=== PATIENT | female | born 1945 | race Caucasian/White ===

== ENCOUNTER 2016-08-03 01:18 | Emergency (ER) | payer MEDICAID, OTHER ==
[~2016-08-03] VITALS: Ht 152.4 cm; Wt 55.0 kg
[2016-08-03 01:27] VITALS: Ht 152.4 cm; Wt 55.0 kg
--- NOTE | 2016-08-03 02:37 | ERA ---
ER Documentation Chief Complaint Date/Time DATE: 08/03/16 TIME: 02:36 Chief Complaint Fall HPI The patient is a 71-year-old female, presenting to the ER because she had a mechanical fall around 2 PM yesterday. She complains of vague left-sided head pain, left neck pain, left shoulder, left elbow and left shoulder pain. The pain is over 10, worse with movement. He denies syncope, near syncope, chest pain, dyspnea, abdominal pain, vomiting, dysuria, diarrhea. He does not smoke nor drink Past medical history: Hypertension, diabetes mellitus, CAD Past surgical history:None ROS All systems reviewed and are negative except as per history of present illness. Medications Home Meds Active Scripts Ibuprofen* (Motrin*) 400 Mg Tab, 400 MG PO Q6H Y for PAIN AND OR ELEVATED TEMP, #30 TAB Prov:HANS CHATTERJEE MD 08/03/16 Allergies Allergies: Coded Allergies: No Known Allergy (Unverified , 08/03/16) Physical Exam Vitals Vital Signs Date Time Temp Pulse Resp B/P Pulse Ox O2 Delivery O2 Flow Rate FiO2 08/03/16 01:27 96.0 101 18 222/93 98 Physical Exam Const: No acute distress. Head: Atraumatic. Eyes: Normal Conjunctiva. ENT: Normal External Ears, Nose and Mouth. Neck: Full range of motion. No meningismus. Minimal neck discomfort, no crepitus Resp: Clear to auscultation bilaterally. Cardio: Regular rate and rhythm, no murmurs. Abd: Soft, non distended, normal bowel sounds, non tender. Skin: No petechiae or rashes. Back: No midline or flank tenderness. Ext: No cyanosis, or edema. Left proximal forearm with small ecchymosis, no laceration, limited range of motion of the elbow because of tenderness, no laceration. Left shoulder is with minimal vague discomfort, no laceration Neur: Awake and alert. No focal deficit Psych: Normal Mood and Affect. Result Diagram: 08/03/16 0355 08/03/16 0355 Results 24 hrs Laboratory Tests Test 08/03/16 03:55 White Blood Count 8.510^3/ul Red Blood Count 4.4210^6/ul Hemoglobin 12.1g/dl Hematocrit 38.2% Mean Corpuscular Volume 86.4fl Mean Corpuscular Hemoglobin 27.4pg Mean Corpuscular Hemoglobin Concent 31.7g/dl Red Cell Distribution Width 14.7% Platelet Count 04259^3/UL Mean Platelet Volume 9.8fl Neutrophils % 51.5% Lymphocytes % 34.7% Monocytes % 11.1% Eosinophils % 2.0% Basophils % 0.5% Nucleated Red Blood Cells % 0.0/100WBC Neutrophils # 4.410^3/ul Lymphocytes # 3.010^3/ul Monocytes # 0.910^3/ul Eosinophils # 0.210^3/ul Basophils # 0.010^3/ul Nucleated Red Blood Cells # 0.010^3/ul Prothrombin Time 13.1Sec Prothrombin Time Ratio 1.0 INR International Normalized Ratio 0.99 Activated Partial Thromboplast Time 36.7Sec Sodium Level 141mmol/L Potassium Level 4.0mmol/L Chloride Level 97mmol/L Carbon Dioxide Level 25mmol/L Anion Gap 23 Blood Urea Nitrogen 22mg/dl Creatinine 0.83mg/dl Glucose Level 160mg/dl Calcium Level 10.0mg/dl [facility]/[place] [id number] Radiology Main Line: [phone] DIAGNOSTIC IMAGING REPORT Patient: SHAHRAM XIONG : 1945 Age: 71 Sex: F MR #: [id number] DOS: 08/03/16 0242 Ordering MD: HANS CHATTERJEE MD Location: E/R Room/Bed: PROCEDURE: XR shoulder. CLINICAL INDICATION: Trauma. TECHNIQUE: Three views of the left shoulder were obtained. COMPARISON: There are no similar studies submitted for comparison. FINDINGS: There is no acute fracture or dislocation.No destructive osseous lesion is identified.The acromioclavicular joint is intact. The visualized portions of the chest are within normal limits. IMPRESSION: No acute fracture or dislocation. RPTAT: HIKT .Linag Li MD, Date Time Electronically viewed and signed by .Liang Li MD, on 08/03/2016 04:13 .T/ CC: HANS CHATTERJEE MD [place] [address] Radiology Main Line: [phone] DIAGNOSTIC IMAGING REPORT Patient: SHAHRAM XIONG : 1945 Age: 71 Sex: F MR #: [id number] DOS: 08/03/16 024 Ordering MD: HANS CHATTERJEE MD Location: E/R Room/Bed: PROCEDURE: XR Elbow. CLINICAL INDICATION: Trauma. TECHNIQUE: AP, lateral and oblique views of the left elbow were performed. COMPARISON: There are no similar studies submitted for comparison. FINDINGS: There is normal bone mineralization.There is no acute fracture or dislocation.No osseous lesion is identified. There is no joint effusion. IMPRESSION: No acute fracture or dislocation. RPTAT: HIKT .Liang Li MD, MD Date Time Electronically viewed and signed by .Liang Li MD, MD on 08/03/2016 04:13 .T/ CC: HANS CHATTERJEE MD [place] [address] Radiology Main Line: [phone] DIAGNOSTIC IMAGING REPORT Patient: SHAHRAM XIONG : 1945 Age: 71 Sex: F MR #: [id number] DOS: 08/03/16 024 Ordering MD: HANS CHATTERJEE MD Location: E/R Room/Bed: PROCEDURE: CT Cervical Spine without contrast. CLINICAL INDICATION: Trauma TECHNIQUE: Noncontrast CT of the cervical spine was performed with axial images. Coronal and sagittal images were also performed. The administered radiation dose was CTDI vol = 22.3 mGy, DLP = 565 mGy-cm. COMPARISON: There are no similar studies submitted for comparison. FINDINGS: Vertebral body stature and alignment are maintained. No acute fracture or subluxation is identified. The paravertebral and paraspinous soft tissues are unremarkable. Extensive atherosclerotic calcifications are noted within the common carotid arteries and carotid bulbs with likely marked narrowing on the right. IMPRESSION: No acute fracture or subluxation. RPTAT: HIKT .Liang Li MD, MD Date Time Electronically viewed and signed by .Liang Li MD, MD on 08/03/2016 04:06 .T/ CC: HANS CHATTERJEE MD [place] [address] Radiology Main Line: [phone] DIAGNOSTIC IMAGING REPORT Patient: SHAHRAM XIONG : 1945 Age: 71 Sex: F MR #: [id number] DOS: 08/03/16 0242 Ordering MD: HANS CHATTERJEE MD Location: E/R Room/Bed: PROCEDURE: CT BRAIN WITHOUT CONTRAST CLINICAL INDICATION: 71-year-old female with headaches. TECHNIQUE: The study was performed utilizing [employer] VCT 64-slice CT scanner. Direct axial sections were obtained from the foramen magnum to the vertex without the use of intravenous contrast material. Sagittal and coronal reformations were obtained. Sagittal and coronal reformations were obtained. One or more the following dose reduction techniques were utilized: automated exposure control, adjustment of the mA and/or kV according to patient's size or use of iterative reconstruction technique. The images were viewed on a PACS workstation. CTD/vol = 45.0 mGy; Total Exam DLP = 720.2 mGy-cm. COMPARISON: None. FINDINGS: There is ihzk-dc-fghrulgc degree of diffuse cortical and central atrophy with compensatory ventricular enlargement. There is no evidence for mass effect or midline shift. There are periventricular and deep white matter areas of decreased density consistent with microangiopathic ischemic changes. There is a small focal area of encephalomalacia within the opercular region presumably representing a prior infarct. There is no evidence for acute intra or extra- axial blood. Calcifications are seen within the intracranial carotid arteries bilaterally. The bony calvarium is intact. There is hyperostosis frontalis interna. There is biparietal thinning. There is mild mucosal thickening within the partially visualized left maxillary sinus. No air-fluid levels are noted. The mastoid air cells are without significant soft tissue. IMPRESSION: 1. Auet-it-xwwkgszm diffuse atrophy. 2. Microangiopathic ischemic changes. 3. 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 4. Vascular calcifications. 5. Hyperostosis frontalis interna with biparietal thinning. 6. Mild mucosal thickening partially visualized left maxillary sinus. .Daniel Santos MD, Date Time Electronically viewed and signed by .Daniel Santos MD, MD on 08/03/2016 03:33 .M/ CC: HANS CHATTERJEE MD EKG: Read by emergency physician Rate/Rhythm: Normal Sinus Rhythm 97 beats/min QRS, ST, T-waves: No ST elevation, no T inversion, nonspecific ST abnormality Impression: Abnormal EKG MEDICAL MAKING DECISION: The patient is a 71-year-old female, presenting with acute left shoulder pain, acute left elbow pain, acute accelerated hypertension. She was treated with labetalol 20 mg IV for acute accelerated hypertension, morphine 2 mg IV for pain, Zofran 4 mg IV for nausea with good response. The differential diagnoses considered include but are not limited to central causes such as cerebellar infarct, cerebellar hemorrhage, cerebellar tumor, acoustic neuroma, peripheral causes such as benign positional vertigo, labyrinthitis, medication, Meniere's disease. Departure Diagnosis: Primary Impression: Elbow contusion Additional Impressions: Shoulder pain, left Accelerated hypertension Condition: Good Comments He was discharged with Motrin I discussed the findings with the patient. I advised the patient to follow-up with the primary physician in about 1-2 days, sooner if needed and return if any concern. HANS CHATTERJEE MD Aug 03, 2016 02:37
--- NOTE | 2016-08-03 03:33 | RADRPT ---
PROCEDURE: CT BRAIN WITHOUT CONTRAST CLINICAL INDICATION: 71-year-old female with headaches. TECHNIQUE: The study was performed utilizing [employer] VCT 64-slice CT scanner. Direct axial sections were obtained from the foramen magnum to the vertex without the use of intravenous contrast material. Sagittal and coronal reformations were obtained. Sagittal and coronal reformations were obtained. One or more the following dose reduction techniques were utilized: automated exposure cont rol, adjustment of the mA and/or kV according to patient's size or use of iterative reconstruction t echnique. The images were viewed on a PACS workstation. CTD/vol = 45.0 mGy; Total Exam DLP = 720.2 mGy-cm. COMPARISON: None. FINDINGS: There is xakb-yx-qgamcemz degree of diffuse cortical and central atrophy with compensatory ventricul ar enlargement. There is no evidence for mass effect or midline shift. There are periventricular a nd deep white matter areas of decreased density consistent with microangiopathic ischemic changes. T here is a small focal area of encephalomalacia within the opercular region presumably representing a prior infarct. There is no evidence for acute intra or extra-axial blood. Calcifications are seen w ithin the intracranial carotid arteries bilaterally. The bony calvarium is intact. There is hyperost osis frontalis interna. There is biparietal thinning. There is mild mucosal thickening within the partially visualized left maxillary sinus. No air-fluid levels are noted. The mastoid air cells ar e without significant soft tissue. IMPRESSION: 1. Bsju-om-ridejton diffuse atrophy. 2. Microangiopathic ischemic changes. 3. 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 4. Vascular calcifications. 5. Hyperostosis frontalis interna with biparietal thinning. 6. Mild mucosal thickening partially visualized left maxillary sinus. .Daniel Santos MD, MD Date Time Electronically viewed and signed by .Daniel Santos MD, MD on 08/03/2016 03:33 .Kimmie/
--- NOTE | 2016-08-03 04:06 | RADRPT ---
PROCEDURE: CT Cervical Spine without contrast. CLINICAL INDICATION: Trauma TECHNIQUE: Noncontrast CT of the cervical spine was performed with axial images. Coronal and sagitta l images were also performed. The administered radiation dose was CTDI vol = 22.3 mGy, DLP = 565 mG y-cm. COMPARISON: There are no similar studies submitted for comparison. FINDINGS: Vertebral body stature and alignment are maintained. No acute fracture or subluxation is identified. The paravertebral and paraspinous soft tissues are unremarkable. Extensive atherosclerotic calcifications are noted within the common carotid arteries and carotid bu lbs with likely marked narrowing on the right. IMPRESSION: No acute fracture or subluxation. RPTAT: HIKT .Liang Li MD, MD Date Time Electronically viewed and signed by .Liang Li MD, on 08/03/2016 04:06 .T/
--- NOTE | 2016-08-03 04:13 | RADRPT ---
PROCEDURE: XR shoulder. CLINICAL INDICATION: Trauma. TECHNIQUE: Three views of the left shoulder were obtained. COMPARISON: There are no similar studies submitted for comparison. FINDINGS: There is no acute fracture or dislocation.No destructive osseous lesion is identified.The acromiocla vicular joint is intact. The visualized portions of the chest are within normal limits. IMPRESSION: No acute fracture or dislocation. RPTAT: HIKT .Liang Li MD, MD Date Time Electronically viewed and signed by .Liang Li MD, on 08/03/2016 04:13 .T/
--- NOTE | 2016-08-03 04:13 | RADRPT ---
PROCEDURE: XR Elbow. CLINICAL INDICATION: Trauma. TECHNIQUE: AP, lateral and oblique views of the left elbow were performed. COMPARISON: There are no similar studies submitted for comparison. FINDINGS: There is normal bone mineralization.There is no acute fracture or dislocation.No osseous lesion is i dentified. There is no joint effusion. IMPRESSION: No acute fracture or dislocation. RPTAT: HIKT .Liang Li MD, MD Date Time Electronically viewed and signed by .Liang Li MD, on 08/03/2016 04:13 .T/
[2016-08-03 04:18] LABS: ADD SCAN DIFF NO
[2016-08-03 04:29] LABS: BASOPHILS % 0.5 % (0.0-2.0); EOSINOPHILS # 0.2 10^3/ul (0.0-0.5); HEMATOCRIT 38.2 % (37.0-47.0); HEMOGLOBIN 12.1 g/dl (12.0-16.0); LYMPHOCYTES % 34.7 % (15.0-51.0); MEAN CORPUSCULAR HEMOGLOBIN 27.4 pg (29.0-33.0); MEAN CORPUSCULAR HGB CONC 31.7 g/dl (32.0-37.0); MEAN CORPUSCULAR VOLUME 86.4 fl (82.0-101.0); MEAN PLATELET VOLUME 9.8 fl (7.4-10.4); MONOCYTE # 0.9 10^3/ul (0.3-0.9); MONOCYTES % 11.1 % (0.0-11.0); NEUTROPHIL # 4.4 10^3/ul (1.6-7.5); NEUTROPHILS % 51.5 % (39.0-77.0); PLATELET COUNT 258 10^3/UL (140-415); RED BLOOD COUNT 4.42 10^6/ul (4.20-5.40); RED CELL DISTRIBUTION WIDTH 14.7 % (11.5-14.5); WHITE BLOOD COUNT 8.5 10^3/ul (4.8-10.8)
[2016-08-03 04:37] LABS: INR 0.99; PROTIME 13.1 Sec (12.2-14.2)
[2016-08-03 04:38] LABS: PARTIAL THROMBOPLASTIN TIME 36.7 Sec (25.0-35.0)
[2016-08-03 04:50] LABS: CREATININE 0.83 mg/dl (0.44-1.00)
[2016-08-03] MEDS ORDERED: IBUP400T22 PO (05:20)
[2016-08-03] MEDS ORDERED: ONDANSETRON 4 MG INJ IV STA (05:30)
[2016-08-03] MEDS ORDERED: morphine 2 MG INJ IV ONE (05:30)
[2016-08-03] MEDS ORDERED: LABETALOL HCL 20MG INJ IV ONE (05:30)
[2016-08-03 06:16] VITALS: BP 156/51; PULSE 64; RESP 18; TEMP 98.2
== END 2016-08-03 06:18 | disposition home or self-care (01) ==
LOC: E/R 01:18
DX: S50.02XA Contusion of left elbow, initial encounter (principal); S49.92XA Unspecified injury of left shoulder and upper arm, initial encounter; I10 Essential (primary) hypertension; E11.9 Type 2 diabetes mellitus without complications; I25.10 Atherosclerotic heart disease of native coronary artery without angina pectoris; W19.XXXA Unspecified fall, initial encounter; Y92.9 Unspecified place or not applicable
CPT/HCPCS: 36415; 70450; 72125; 73030; 73080; 80048; 85025; 85610; 85730; 93005; 96374; 96375; J2270; J2405; Z7502; Z7610

== ENCOUNTER 2016-12-28 18:05 | Inpatient (IN) | payer MEDICAID, OTHER ==
[~2016-12-28] VITALS: Ht 152.4 cm; Wt 51.9 kg
[~2016-12-28 18:05] MED LIST: IBUP400T22 PO
[2016-12-28 18:07] VITALS: Ht 152.4 cm; Wt 51.9 kg
[2016-12-28] MEDS ORDERED: SOD CHLORIDE 0.9% 1,000 ML IV STA (18:55)
[2016-12-28] MEDS ORDERED: ONDANSETRON 4 MG INJ IV STA (18:55)
--- NOTE | 2016-12-28 19:16 | ERD ---
ER Documentation Chief Complaint Date/Time DATE: 12/28/16 TIME: 19:14 Chief Complaint BIB family members with complaint of weakness HPI 71-year-old female is brought in by her family for having weakness for the last few days. She does feel generally tired and occasionally lightheaded. No chest pain or shortness of breath fevers or chills. Decreased activity. ROS All systems reviewed and are negative except as per history of present illness. Medications Home Meds Reported Medications Nortriptyline Hcl* (Nortriptyline Hcl*) 25 Mg Capsule, 25 MG PO BID, CAP 12/28/16 Aspirin (Aspir-Low) 81 Mg Tablet.dr, 81 MG PO DAILY 12/28/16 Metoprolol Tartrate* (Lopressor*) 25 Mg Tab, 25 MG PO BID, #60 TAB 12/28/16 Atorvastatin* (Atorvastatin*) 40 Mg Tablet, 40 MG PO DAILY, #30 TAB 12/28/16 Glipizide* (Glipizide*) 5 Mg Tablet, 5 MG PO AC BREAKFAST, TAB 12/28/16 Metformin Hcl* (Metformin Hcl*) 850 Mg Tablet, 850 MG PO WITH MEALS, #60 TAB TID 12/28/16 Furosemide* (Furosemide*) 40 Mg Tablet, 40 MG PO DAILY, TAB 12/28/16 Ferrous Sulfate* (Ferrous Sulfate*) 325 Mg Tabec, 325 MG PO BID, TAB 12/28/16 Discontinued Scripts Ibuprofen* (Motrin*) 400 Mg Tab, 400 MG PO Q6H Y for PAIN AND OR ELEVATED TEMP, #30 TAB Prov:HANS CHATTERJEE MD 08/03/16 Allergies Allergies: Coded Allergies: No Known Allergy (Unverified , 12/28/16) PMhx/Soc History of Surgery: No Anesthesia Reaction: No Hx Neurological Disorder: No Hx Respiratory Disorders: No Hx Cardiac Disorders: Yes (HTN) Hx Psychiatric Problems: No Hx Miscellaneous Medical Probl: Yes (HTN) Hx Alcohol Use: No Hx Substance Use: No Hx Tobacco Use: No Physical Exam Vitals Vital Signs Date Time Temp Pulse Resp B/P Pulse Ox O2 Delivery O2 Flow Rate FiO2 12/28/16 22:23 87 18 127/54 97 Room Air 12/28/16 18:07 98.6 99 20 89/40 94 Physical Exam Const: [] Head: Atraumatic Eyes: Normal Conjunctiva ENT: Normal External Ears, Nose and Mouth. Neck: Full range of motion..~ No meningismus. Resp: Clear to auscultation bilaterally Cardio: Regular rate and rhythm, no murmurs Abd: Soft, non tender, non distended. Normal bowel sounds Skin: No petechiae or rashes Back: No midline or flank tenderness Ext: No cyanosis, or edema Neur: Awake and alert Psych: Normal Mood and Affect Result Diagram: 12/28/16191712/28/161917 Results 24 hrs Laboratory Tests Test 12/28/16 19:18 12/28/16 20:42 White Blood Count 9.010^3/ul Red Blood Count 4.0310^6/ul Hemoglobin 11.3g/dl Hematocrit 33.5% Mean Corpuscular Volume 83.1fl Mean Corpuscular Hemoglobin 28.0pg Mean Corpuscular Hemoglobin Concent 33.7g/dl Red Cell Distribution Width 15.9% Platelet Count 62072^3/UL Mean Platelet Volume 9.4fl Neutrophils % 68.4% Lymphocytes % 19.7% Monocytes % 10.9% Eosinophils % 0.3% Basophils % 0.3% Nucleated Red Blood Cells % 0.0/100WBC Neutrophils # (Manual) 6.210^3/ul Lymphocytes # 1.810^3/ul Monocytes # 1.010^3/ul Eosinophils # 0.010^3/ul Basophils # 0.010^3/ul Nucleated Red Blood Cells # 0.010^3/ul Sodium Level 136mmol/L Potassium Level 3.3mmol/L Chloride Level 88mmol/L Carbon Dioxide Level 29mmol/L Anion Gap 22 Blood Urea Nitrogen 23mg/dl Creatinine 1.72mg/dl Glucose Level 259mg/dl Lactic Acid Level 2.4mmol/L Calcium Level 8.1mg/dl Total Bilirubin 0.2mg/dl Direct Bilirubin 0.00mg/dl Indirect Bilirubin 0.2mg/dl Aspartate Amino Transf (AST/SGOT) 36IU/L Alanine Aminotransferase (ALT/SGPT) 41IU/L Alkaline Phosphatase 99IU/L Troponin I 0.057ng/ml Total Protein 7.3g/dl Albumin 4.0g/dl Globulin 3.30g/dl Albumin/Globulin Ratio 1.21 Lipase 187U/L Urine Color YELLOW Urine Clarity SLIGHTLY CLOUDY Urine pH 7.0 Urine Specific [place] 1.011 Urine Ketones NEGATIVEmg/dL Urine Nitrite NEGATIVEmg/dL Urine Bilirubin NEGATIVEmg/dL Urine Urobilinogen NEGATIVEmg/dL Urine Leukocyte Esterase 1+Darinel/ul Urine Microscopic RBC 0/HPF Urine Microscopic WBC 31/HPF Urine Bacteria MANY/HPF Urine Hemoglobin NEGATIVEmg/dL Urine Glucose 2+mg/dL Urine Total Protein 2+mg/dl Current Medications Medications (Trade) Dose Ordered Sig/Cherry Route PRN Reason Start Time Stop Time Status Last Admin Dose Admin Sodium Chloride (NS) 1,000 ml @ 1,000 mls/hr Q1H STAT IV 12/28/16 18:55 12/28/16 19:54 DC 12/28/16 19:27 Ondansetron HCl (Zofran Inj) 4 mg ONCE STAT IV 12/28/16 18:55 12/28/16 18:58 DC 12/28/16 19:27 Procedures/MDM 71-year-old female with recent debility secondary to urinary tract infection, also has diabetic hyperglycemia and dehydration with lactic acidosis. She was hydrated with 2 L of normal saline and treated with cefepime. Urine culture is pending. She is feeling a little better but still does not want to eat. Spoke with on day who will be admitting. Condition is currently stabilized after initial hypotension. EKG interpretation: Normal sinus rhythm rate of 91, normal axis, no ST or T- wave changes concerning for acute ischemia, normal intervals. 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
--- NOTE | 2016-12-28 19:27 | RADRPT ---
PROCEDURE: XR Chest. CLINICAL INDICATION: Abdominal pain and weakness. TECHNIQUE: Single frontal view. COMPARISON: None. FINDINGS: The lungs are clear. The heart size is normal. There is calcification in the aorta consistent with atherosclerosis. There is no pleural effusion. There is no pneumothorax. IMPRESSION: 1. Atherosclerosis. 2. Clear lungs. RPTAT: QQ .Nick Felix MD, MD Date Time Electronically viewed and signed by .Nick Felix MD, MD on 12/28/2016 19:27 .R/
[2016-12-28 19:29] LABS: BASOPHILS % 0.3 % (0.0-2.0); EOSINOPHILS % 0.3 % (0.0-7.0); HEMATOCRIT 33.5 % (37.0-47.0); HEMOGLOBIN 11.3 g/dl (12.0-16.0); LYMPHOCYTES # 1.8 10^3/ul (0.8-2.9); LYMPHOCYTES % 19.7 % (15.0-51.0); MEAN CORPUSCULAR HGB CONC 33.7 g/dl (32.0-37.0); MEAN CORPUSCULAR VOLUME 83.1 fl (82.0-101.0); MEAN PLATELET VOLUME 9.4 fl (7.4-10.4); MONOCYTES % 10.9 % (0.0-11.0); NEUTROPHILS % 68.4 % (39.0-77.0); PLATELET COUNT 303 10^3/UL (140-415); RED BLOOD COUNT 4.03 10^6/ul (4.20-5.40); RED CELL DISTRIBUTION WIDTH 15.9 % (11.5-14.5)
[2016-12-28 19:45] LABS: ALBUMIN/GLOBULIN RATIO 1.21; BILIRUBIN,INDIRECT 0.2 mg/dl (0-1.1); BILIRUBIN,TOTAL 0.2 mg/dl (0.2-1.3); CALCIUM 8.1 mg/dl (8.4-10.2); CREATININE 1.72 mg/dl (0.44-1.00); POTASSIUM 3.3 mmol/L (3.5-5.1); TOTAL PROTEIN 7.3 g/dl (6.1-8.1)
[2016-12-28 19:54] LABS: TROPONIN-I 0.057 ng/ml (0.00-0.12)
[2016-12-28 21:20] LABS: ADD UMIC YES; UR ASCORBIC ACID NEGATIVE (NEGATIVE); UR BACTERIA MANY /HPF (NONE SEEN); UR BILIRUBIN (Dip) NEGATIVE (NEGATIVE); UR BLOOD (Dip) NEGATIVE (NEGATIVE); UR CLARITY SLIGHTLY CLOUDY (CLEAR); UR COLOR YELLOW (YELLOW); UR GLUCOSE (Dip) 2+ mg/dL (NEGATIVE); UR KETONES (Dip) NEGATIVE (NEGATIVE); UR LEUKOCYTE ESTERASE (Dip) 1+ Leu/ul (NEGATIVE); UR NITRITE (Dip) NEGATIVE (NEGATIVE); UR RBC 0 /HPF (0-5); UR SPECIFIC GRAVITY (Dip) 1.011 (1.003-1.030); UR TOTAL PROTEIN (Dip) 2+ mg/dl (NEGATIVE); UR UROBILINOGEN (Dip) NEGATIVE (NEGATIVE); UR WBC CLUMPS FEW /HPF (NONE SEEN)
[2016-12-28] MEDS ORDERED: FER325 PO (22:42)
[2016-12-28] MEDS ORDERED: FURO40TA4 PO (22:43)
[2016-12-28] MEDS ORDERED: METF850T PO (22:44)
[2016-12-28] MEDS ORDERED: GLIP5TAB13 PO (22:44)
[2016-12-28] MEDS ORDERED: METO-448 PO (22:45)
[2016-12-28] MEDS ORDERED: ATOR40TA68 PO (22:45)
[2016-12-28] MEDS ORDERED: ASPI81TA50 PO (22:46)
[2016-12-28] MEDS ORDERED: NORT25CA PO (22:48)
[2016-12-28] MEDS ORDERED: ONDANSETRON 4 MG INJ IV PRN (23:00)
[2016-12-28] MEDS ORDERED: ACETAMINOPHEN 325 MG TAB PO PRN (23:00)
[2016-12-29] VITALS (13 sets, daily range): BP systolic 92–163; BP diastolic 45–65; PULSE 62–94; RESP 16–18; TEMP 98.6
[2016-12-29] MEDS ORDERED: SOD CHLORIDE 0.9% 1,000 ML IV SCH (03:37)
[2016-12-29] MEDS ORDERED: ONDANSETRON 4 MG INJ IV PRN (04:00)
[2016-12-29] MEDS ORDERED: NACL 0.9% 3 ML SYG IV SCH (04:00)
[2016-12-29] MEDS ORDERED: morphine 2 MG INJ IV PRN (04:00)
[2016-12-29] MEDS ORDERED: ACETAMINOPHEN 325 MG TAB PO PRN (04:00)
[2016-12-29] MEDS ORDERED: ALBUTEROL/IPRATROPIUM (NEB) 3 ML AMP HHN PRN (04:00)
[2016-12-29] MEDS: CEFTRIAXONE 1 GM/50 ML (PMX) 50 ML IVPB SCH (05:25)
[2016-12-29] MEDS: FUROSEMIDE 40 MG TAB PO SCH (05:26)
[2016-12-29 06:09] LABS: BASOPHILS % 0.4 % (0.0-2.0); EOSINOPHILS # 0.1 10^3/ul (0.0-0.5); EOSINOPHILS % 1.2 % (0.0-7.0); HEMATOCRIT 31.5 % (37.0-47.0); HEMOGLOBIN 10.4 g/dl (12.0-16.0); LYMPHOCYTES % 28.8 % (15.0-51.0); MEAN CORPUSCULAR HEMOGLOBIN 27.7 pg (29.0-33.0); MEAN CORPUSCULAR VOLUME 83.8 fl (82.0-101.0); MEAN PLATELET VOLUME 9.5 fl (7.4-10.4); MONOCYTE # 0.9 10^3/ul (0.3-0.9); MONOCYTES % 12.7 % (0.0-11.0); NEUTROPHILS % 56.8 % (39.0-77.0); PLATELET COUNT 269 10^3/UL (140-415); RED BLOOD COUNT 3.76 10^6/ul (4.20-5.40); RED CELL DISTRIBUTION WIDTH 15.9 % (11.5-14.5); WHITE BLOOD COUNT 6.8 10^3/ul (4.8-10.8)
--- NOTE | 2016-12-29 06:12 | HP ---
Date/Time of Note Date/Time of Note DATE: 12/29/16 TIME: 06:03 Assessment/Plan VTE Prophylaxis VTE Prophylaxis Intervention: SCD's Lines/Catheters IV [facility] ([facility] Saline Lock Urinary Cath still in place: No Assessment/Plan Assessment/Plan 1. Urinary tract infection -Antibiotic and IV fluid -Follow-up culture results 2. Generalized weakness: Secondary to decreased p.o. intake and UTI -Treat UTI -Consider appetite stimulant as needed -Physical therapy evaluation 3. Acute kidney injury: from volume depletion as a result of decreased p.o. intake -IV fluid -Renal ultrasound and nephrology consult as needed 4. Type 2 diabetes -Insulin while in-house -Check A1c 5. History of hypertension: Patient actually presented with hypotension -We will hold antihypertensives for now and will resume as needed 6. History of CAD -Continue home meds including beta-carolyn, aspirin and statin 7. Iron deficiency anemia -Continue ferrous sulfate HPI/ROS Admit Date/Time Admit Date/Time Dec 28, 2016 at 22:59 Hx of Present Illness This is a 71-year-old female with a history of hypertension, diabetes, dyslipidemia, CAD who was brought to the ER for generalized weakness and decreased p.o. intake. For for about a week or so, daughter noted decreased p.o. intake and progressively worsening weakness. No focal weakness or strokelike symptoms. When presented to the ER, she was hypotensive with a blood pressure of 89 over with a heart rate of. Labs shows: hemoglobin 11.3 lactic acid 2.4 creatinine 1.72 and glucose of 59 otherwise CBC and CMP within acceptable range. Urinalysis is consistent with UTI. PMH/Family/Social Past Medical History Medical History: diabetes, hypertension, other (Anemia) Social History Alcohol Use: none Smoking Status: Never smoker Drug Use: none Exam/Review of Systems Vital Signs Vitals Vital Signs Date Time Temp Pulse Resp B/P Pulse Ox O2 Delivery O2 Flow Rate FiO2 12/29/16 05:26 77 16 135/61 99 Room Air 12/29/16 00:44 98.6 Exam Constitutional: alert, oriented, well developed Head: atraumatic, normocephalic Eyes: EOMI, PERRL Respiratory: clear to auscultation, normal air movement Cardiovascular: nl pulses, regular rate and rhythm Gastrointestinal: non-tender, soft Extremities: normal pulses Labs Result Diagram: 12/28/16191712/28/161917 Medications Medications Current Medications Sodium Chloride (NS) 1,000 ml @ 75 mls/hr [id number] IV Last administered on 05:26; Admin Dose 75 MLS/HR; Start 12/29/16 at 03:37; Stop 12/29/16 at 12:00 Ondansetron HCl (Zofran Inj) 4 mg Q6H PRN IV NAUSEA AND/OR VOMITING; Start 12/29 at 04:00 Acetaminophen (Tylenol Tab) 650 mg Q6H PRN PO PAIN LEVEL 1-3 OR FEVER; Start at 04:00 Morphine Sulfate (morphine) 2 mg Q4H PRN IV PAIN LEVEL 7-10; Start 12/29/16 at 04:00 Heparin Sodium (Porcine) (Heparin (5000 Units/0.5 ml)) 5,000 unit Q12 SC ; Start 12/29/16 at 09:00 Aspirin (Halfprin) 81 mg DAILY PO ; Start 12/29/16 at 09:00 Atorvastatin Calcium (Lipitor) 40 mg DAILY@21 PO ; Start 12/29/16 at 21:00 Ferrous Sulfate (Ferrous Sulfate (Ec)) 325 mg BID PO ; Start 12/29/16 at 09:00 Furosemide (Lasix) 40 mg DAILY@06 PO Last administered on 12/29/16 05:26; Admin Dose 40 MG; Start 12/29/16 at 06:00 Metoprolol Tartrate (Lopressor) 25 mg BID PO ; Start 12/29/16 at 09:00 Nortriptyline HCl 25 mg 25 mg BID PO ; Start 12/29/16 at 09:00 Ceftriaxone Sodium (Rocephin) 50 ml @ 100 mls/hr Q24H IVPB Last administered on 12/29/16 05:25; Admin Dose 100 MLS/HR; Start 12/29/16 at 04:00 AMARIS HUGHES MD Dec 29, 2016 06:12
[2016-12-29 06:59] LABS: ALBUMIN 3.5 g/dl (3.3-4.9); ALBUMIN/GLOBULIN RATIO 1.2; BILIRUBIN,INDIRECT 0.1 mg/dl (0-1.1); BILIRUBIN,TOTAL 0.1 mg/dl (0.2-1.3); CALCIUM 7.2 mg/dl (8.4-10.2); CREATININE 1.5 mg/dl (0.44-1.00); POTASSIUM 3.2 mmol/L (3.5-5.1); TOTAL PROTEIN 6.4 g/dl (6.1-8.1)
[2016-12-29] MEDS: ASPIRIN (EC) 81 MG TAB PO SCH (08:42)
[2016-12-29] MEDS: METOPROLOL 25 MG TAB PO SCH ×2 (08:43→21:00)
[2016-12-29] MEDS: NORTRIPTYLINE 25 MG CAP PO SCH ×2 (08:43→22:33)
[2016-12-29] MEDS: FERROUS SULFATE (EC) 325 MG TAB PO SCH ×2 (08:43→20:36)
[2016-12-29] MEDS: HEPARIN 5,000 UNIT/0.5 ML VIAL SC SCH ×2 (08:46→20:38)
[2016-12-29] MEDS ORDERED: POTASSIUM CHLORIDE (SR) 20 MEQ TAB PO STA (09:52)
[2016-12-29] MEDS ORDERED: GLUCAGON 1 MG INJ IM PRN (10:30)
[2016-12-29] MEDS ORDERED: GLUCOSE GEL 15 GRAM TUBE BUCCAL PRN (10:30)
[2016-12-29] MEDS ORDERED: GLUCOSE GEL 15 GRAM TUBE PO PRN ×2 (10:30)
[2016-12-29] MEDS ORDERED: DEXTROSE 50% 50 ML SYRINGE IV PRN ×2 (10:30)
[2016-12-29] MEDS: INSULIN ASPART [NOVOLOG] 3 ML PEN SC SCH ×3 (13:34→20:37)
[2016-12-29] MEDS: SOD CHLORIDE 0.9% 1,000 ML IV SCH (17:33)
[2016-12-29] MEDS ORDERED: ATORVASTATIN 40 MG TAB PO SCH (21:00)
[2016-12-30] VITALS (9 sets, daily range): BP systolic 110–184; BP diastolic 52–73; PULSE 60–89; RESP 18
[2016-12-30] MEDS ORDERED: ACCU-CHEK XX SCH ×2 (02:00)
[2016-12-30] MEDS: SOD CHLORIDE 0.9% 1,000 ML IV SCH (06:19)
[2016-12-30] MEDS: CEFTRIAXONE 1 GM/50 ML (PMX) 50 ML IVPB SCH (06:19)
[2016-12-30] MEDS: FUROSEMIDE 40 MG TAB PO SCH (06:25)
[2016-12-30 07:47] LABS: BASOPHILS % 0.5 % (0.0-2.0); EOSINOPHILS # 0.1 10^3/ul (0.0-0.5); EOSINOPHILS % 1.4 % (0.0-7.0); HEMATOCRIT 33.7 % (37.0-47.0); HEMOGLOBIN 10.8 g/dl (12.0-16.0); LYMPHOCYTES # 2.1 10^3/ul (0.8-2.9); LYMPHOCYTES % 35.7 % (15.0-51.0); MEAN CORPUSCULAR HEMOGLOBIN 27.6 pg (29.0-33.0); MEAN CORPUSCULAR VOLUME 86.2 fl (82.0-101.0); MEAN PLATELET VOLUME 9.5 fl (7.4-10.4); MONOCYTE # 0.6 10^3/ul (0.3-0.9); MONOCYTES % 10.9 % (0.0-11.0); NEUTROPHILS % 51.2 % (39.0-77.0); PLATELET COUNT 245 10^3/UL (140-415); RED BLOOD COUNT 3.91 10^6/ul (4.20-5.40); RED CELL DISTRIBUTION WIDTH 16.2 % (11.5-14.5); WHITE BLOOD COUNT 5.8 10^3/ul (4.8-10.8)
[2016-12-30 08:17] LABS: CALCIUM 7.5 mg/dl (8.4-10.2); MAGNESIUM 1.3 mg/dl (1.7-2.5); PHOSPHORUS 3.3 mg/dl (2.5-4.9); POTASSIUM 3.6 mmol/L (3.5-5.1)
[2016-12-30] MEDS: INSULIN ASPART [NOVOLOG] 3 ML PEN SC SCH ×2 (09:09→12:20)
[2016-12-30] MEDS: NORTRIPTYLINE 25 MG CAP PO SCH (09:10)
[2016-12-30] MEDS: METOPROLOL 25 MG TAB PO SCH (09:11)
[2016-12-30] MEDS: ASPIRIN (EC) 81 MG TAB PO SCH (09:11)
[2016-12-30] MEDS: FERROUS SULFATE (EC) 325 MG TAB PO SCH (09:11)
[2016-12-30] MEDS: HEPARIN 5,000 UNIT/0.5 ML VIAL SC SCH (09:14)
--- NOTE | 2016-12-30 11:15 | PDOCDIS ---
Discharge Instructions CONDITION Patient Condition: Good HOME CARE INSTRUCTIONS: Special Diet: diabetic diet ACTIVITY: Activity Restrictions: No Restrictions FOLLOW UP/APPOINTMENTS Follow-up Plan F/U WITH YOUR PCP IN 1-2 WEEKS ADDY GODWIN Dec 30, 2016 11:15
[2016-12-30] MEDS ORDERED: MAGNESIUM SULFATE 4 GM/100 ML 100 ML IVPB ONE (12:00)
--- NOTE | 2016-12-30 12:53 | DS ---
Date/Time of Note Date/Time of Note DATE: 12/30/16 TIME: 12:49 Discharge Summary Admission/Discharge Info Admit Date/Time Dec 28, 2016 at 22:59 Discharge Date/Time December 30, 2016 Discharge Diagnosis 1. Urinary tract infection -Status post IV antibiotics 2. Generalized weakness: Secondary to decreased p.o. intake and UTI-resolved 3. Acute kidney injury: from volume depletion as a result of decreased p.o. intake-resolved -Status post IV fluid 4. Type 2 diabetes -A 1 c at 7.4 continue home regimen 5. History of hypertension-stable -Continue home meds 6. History of CAD -Continue home meds including beta-carolyn, aspirin and statin 7. Iron deficiency anemia -Continue ferrous sulfate Patient Condition: Good Hospital Course Patient is a 71-year-old female with a history of hypertension, diabetes, dyslipidemia, CAD who was brought to the ER for generalized weakness and decreased p.o. intake. For for about a week or so, daughter noted decreased p.o. intake and progressively worsening weakness. Patient was found to have a UTI but was a symptomatically. She was treated with Rocephin IV. She was noted to be dry and was treated with IV fluids, she did have prerenal acute kidney injury which resolved with IV fluids. Patient's appetite returned and her mentation was at baseline per daughter. Patient was felt to be stable for discharge and on the day of discharge patient vitals, labs and physical exam are stable. Home Meds Reported Medications Nortriptyline Hcl* (Nortriptyline Hcl*) 25 Mg Capsule, 25 MG PO BID, CAP 12/28/16 Aspirin (Aspir-Low) 81 Mg Tablet.dr, 81 MG PO DAILY 12/28/16 Metoprolol Tartrate* (Lopressor*) 25 Mg Tab, 25 MG PO BID, #60 TAB 12/28/16 Atorvastatin* (Atorvastatin*) 40 Mg Tablet, 40 MG PO DAILY, #30 TAB 12/28/16 Glipizide* (Glipizide*) 5 Mg Tablet, 5 MG PO AC BREAKFAST, TAB 12/28/16 Metformin Hcl* (Metformin Hcl*) 850 Mg Tablet, 850 MG PO WITH MEALS, #60 TAB TID 12/28/16 Furosemide* (Furosemide*) 40 Mg Tablet, 40 MG PO DAILY, TAB 12/28/16 Ferrous Sulfate* (Ferrous Sulfate*) 325 Mg Tabec, 325 MG PO BID, TAB 12/28/16 Discontinued Scripts Ibuprofen* (Motrin*) 400 Mg Tab, 400 MG PO Q6H Y for PAIN AND OR ELEVATED TEMP, #30 TAB Prov:HANS CHATTERJEE MD 08/03/16 Follow-up Plan FOLLOW UP WITH YOUR PRIMARY CARE PHYSICIAN IN 1-2 WEEKS Primary Care Provider Not On Staff Doctor Time spent on discharge: > 30 minutes ADDY GODWIN Dec 30, 2016 12:53
[2016-12-30] MEDS ORDERED: AMLODIPINE 5 MG TAB PO SCH (15:30)
== END 2016-12-30 17:38 | disposition home or self-care (01) | DRG 690 ==
LOC: E/R 18:05 → MS3 22:59 → MS4 12-29 16:26
PROVIDERS: ADMIT Internal Medicine; ATTEND Internal Medicine
DX: N39.0 Urinary tract infection, site not specified (principal); N17.9 Acute kidney failure, unspecified; I10 Essential (primary) hypertension; D50.9 Iron deficiency anemia, unspecified; E11.9 Type 2 diabetes mellitus without complications; E78.5 Hyperlipidemia, unspecified; E86.0 Dehydration; R53.1 Weakness; I25.10 Atherosclerotic heart disease of native coronary artery without angina pectoris
CPT/HCPCS: 36415; 71010; 80048; 80053; 81001; 82962; 83036; 83605; 83690; 83735; 84100; 84484; 85025; 93005; 96374; 97161; J0696; J1644; J1815; J2405; J7030; P9612

== ENCOUNTER 2017-04-22 11:13 | Inpatient (IN) | END 2017-04-27 18:09 | disposition home health service (06) | DRG 871 ==